=== PATIENT | female | born 1970 | race Asian ===

== ENCOUNTER 2019-08-01 09:04 | Emergency (ER) | payer BC ==
[2019-08-01 09:12] VITALS: BP 110/76
--- NOTE | 2019-08-01 09:38 | UC ---
Skin Complaint HPI - HPI Summary HPI Summary: patient poked L 3rd finger 4 days ago with something in recycling box. she does not recall bleeding or FB. 2 days later her finger turned red and painful at site. denies fever or chills. Tdap < 10y - History of Current Complaint Chief Complaint: UCUpperExtremity Time Seen by Provider: 08/01/19 09:23 Stated Complaint: FINGER INJURY Hx Obtained From: Patient ?: No Onset/Duration: Gradual Onset Timing: Constant Current Severity: Mild Pain Intensity: 4 Location: Hand (Left) - palm surface L 3rd finger Character: Swelling, Pain, Redness Aggravating Factor(s): Touch Alleviating Factor(s): Nothing Associated Signs & Symptoms: Positive: Negative - Allergy/Home Medications Allergies/Adverse Reactions: Allergies Allergy/AdvReac Type Severity Reaction Status Date / Time med Allergy unk rash Uncoded 08/01/19 09:19 Home Medications: Home Medications NK [No Home Medications Reported] 08/01/19 [History Confirmed 08/01/19] PMH/Surg Hx/FS Hx/Imm Hx Previously Healthy: Yes - Surgical History Surgical History: Yes Surgery Procedure, Year, and Place: [facility] x 2 - Family History Known Family History: Positive: None - Social History Occupation: Employed Full-time Lives: With Family Alcohol Use: None Substance Use Type: None Smoking Status (MU): Never Smoked Tobacco Review of Systems All Other Systems Reviewed And Are Negative: Yes Constitutional: Positive: Negative Skin: Positive: Other - red L 3rd finger Respiratory: Positive: Negative Cardiovascular: Positive: Negative Motor: Positive: Decreased ROM Neurovascular: Positive: Negative. Negative: Decreased Sensation Musculoskeletal: Positive: Negative. Negative: Decreased ROM Neurological: Positive: Negative Psychological: Positive: Negative Is Patient Immunocompromised?: No Physical Exam Triage Information Reviewed: Yes Appearance: Well-Appearing, No Pain Distress, Well-Nourished Vital Signs: Initial Vital Signs Temp 98.5 F 08/01/19 09:09 Pulse 74 08/01/19 09:09 Resp 16 08/01/19 09:09 BP 110/76 08/01/19 09:09 Pulse Ox 100 08/01/19 09:09 Vital Signs Reviewed: Yes Respiratory Exam: Normal Respiratory: Positive: Lungs clear Cardiovascular Exam: Normal Cardiovascular: Positive: RRR Musculoskeletal Exam: Normal Musculoskeletal: Positive: Strength Intact, ROM Intact - L fingers Neurological Exam: Normal Psychological Exam: Normal Skin Exam: Other - small raised pustule with surroundign erythema L 3rd finger. While palpating lesion for FB, pustule opend and slight amount white drainage expressed. Course/Dx - Course Course Of Treatment: wound was cleansed with betadine solution and dressing applied - Differential Diagnoses - Skin Complaint Differential Diagnoses: Abscess, Cellulitis, Foreign Body - Diagnoses Provider Diagnosis: Skin abscess Discharge ED - Sign-Out/Discharge Documenting (check all that apply): Patient Departure All imaging exams completed and their final reports reviewed: No Studies - Discharge Plan Condition: Good Disposition: HOME Patient Education Materials: Abscess (ED) Referrals: Rafia Oden MD [Primary Care Provider] - 2 Days (if no improvement) Additional Instructions: keep wound clean and dry apply thin layer antibiotic ointment to wound everyday report worsening redness or swelling ibuprofen 400-600mg every 6 hours as needed for pain (take with food) - Billing Disposition and Condition Condition: GOOD Disposition: Home - Attestation Statements Provider Attestation: This patient was not seen by me. I was available for consult. Chart reviewed. FELICE
== END 2019-08-01 09:45 | disposition home or self-care (01) ==
LOC: UCEAST 09:04
DX: L02.512 Cutaneous abscess of left hand (principal); Z88.8 Allergy status to other drugs, medicaments and biological substances; W26.8XXA Contact with other sharp object(s), not elsewhere classified, initial encounter; Y92.9 Unspecified place or not applicable
CPT/HCPCS: 99211; G0463